=== PATIENT | female | born 1970 | race Caucasian/White ===

== ENCOUNTER → 2017-05-26 | Outpatient (CLI) | payer OTHER ==
--- NOTE | 2017-05-27 10:15 | ECHO ---
DATE OF PROCEDURE: 05/26/2017 REFERRING PHYSICIAN: Reuben Ortiz. REASON FOR ECHOCARDIOGRAM: Chest pain, palpitations. 2D MEASUREMENT: IVS - 1.1 cm LV - 4.4 cm LVPW - 1.1 cm LA - 3.6 cm Aorta - 3.4 cm IVC - 2.1 cm DOPPLER MEASUREMENT: Peak velocity across the aortic valve - 1.2 m/s Peak velocity across the LVOT - 1.1 m/s Mitral E 0.81, Mitral A 0.73 with a ratio of 1.1 Maximum tricuspid valve velocity - 2.3 m/s 2D COMMENTS: 1. Normal left ventricular size, wall thickness and normal global left ventricular systolic function. The estimated left ventricular systolic ejection fraction is 65-70%. 2. Normal left atrium. Normal right atrium and left ventricle. 3. The atria septum appear to be normal without evidence of defect or shunt. 4. Normal aortic root. 5. No pericardial effusion seen. 6. Minimally calcified aortic valve with normal leaflet excursion. Mildly calcified mitral annulus with normal anterior mitral valve leaflet motion. Normal tricuspid valve and pulmonic valve. The proximal pulmonary artery branches were not well visualized. 7. The inferior vena cava was mildly enlarged. The central venous pressure might be elevated. Doppler detects trace to mild aortic regurgitation, trace mitral regurgitation, and trace to mild tricuspid regurgitation. The calculated pulmonary artery systolic pressure is about 30 mmHg. Abnormal relaxation pattern was noted across the mitral valve annulus consistent with a pseudopneumo pattern, left ventricular and diastolic pressure might be elevated. IMPRESSION: 1. Normal global left ventricular systolic function. There are features of left ventricular diastolic dysfunction as mentioned above. 2. Aortic valve sclerosis with trace of mild aortic regurgitation. 3. Trace mitral regurgitation. 4. Trace to mild tricuspid regurgitation with probably mild pulmonary hypertension. 5. Central venous pressure may be elevated. The inferior vena cava/IVC was mildly enlarged.
== END ==
LOC: M CARPUL 08:07
PROVIDERS: ATTEND Nurse Practitioner Family
DX: R00.2 Palpitations (principal)

== ENCOUNTER → 2017-06-05 | Outpatient (CLI) | payer OTHER ==
--- NOTE | 2017-06-07 21:25 | HOLTMON ---
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 Heart rate variability was normal. There were occasional multifocal PVC's and rare PAC's but no significant runs. No significant ST events or pauses. No atrial fibrillation was seen. Unremarkable Holter monitor. Electronically Signed On 06-07-2017 21:24:45 EST by Micky Dickerson
== END ==
LOC: M EKG 10:21
PROVIDERS: ATTEND Nurse Practitioner Family
DX: R00.2 Palpitations (principal)